=== PATIENT | male | born 1960 | race Caucasian/White ===

== ENCOUNTER 2019-12-10 11:39 | Emergency (ER) | payer MEDICARE, OTHER, SELFPAY ==
[~2019-12-10] VITALS: Ht 185.4 cm; Wt 102.0 kg
--- NOTE | 2019-12-10 12:03 | NUR ---
C/O RT FOOT PAIN, STARTED TUESDAY NIGHT. WAS ABLE TO WALK LONG DISTANCE W/OUT DIFFICULTY. PT DENIES TRAUMA. STATES "IT JUST CRAMPED OUT" ON TUESDAY. TOOK ASA 325MG YESTERDAY W/OUT RELIEF. FOOT COOL & DRY, SWELLING & LIGHT REDNESS NOTED TO LATERAL FOOT, PEDAL PULSE DIMINISHED. LIMITED ROM R/T PAIN. STATES HE INITIALY WENT TO [facility] FOR EVAL BUT THEY WOULDN'T SEE HIM. STATES HE KNEELED ON WALKER TO GET HERE FROM [place]
[2019-12-10] MEDS ORDERED: INHALER (12:09)
--- NOTE | 2019-12-10 12:11 | NUR ---
PT STATES GERARDO WAS LOANED TO HIM TODAY
[2019-12-10] MEDS ORDERED: ACETAMINOPHEN 500 MG TABLET PO ONE (12:30)
[2019-12-10] MEDS ORDERED: ACETAMINOPHEN 500 MG TABLET ONE (12:55)
[2019-12-10] MEDS ORDERED: SODIUM CHLORIDE 0.9% 1,000ML IVBOLUS ONE (13:00)
[2019-12-10 13:01] LABS: ALANINE AMINOTRANSFERASE 92 U/L (12-78); ANION GAP 5 mmol/L (5-15); BASOPHILS # (AUTO) 0.02 x10^3/uL (0-0.1); BASOPHILS % (AUTO) 0 % (0-1); CALCIUM 9.6 mg/dL (8.5-10.1); CHLORIDE 110 mmol/L (98-107); CREATININE 1.65 mg/dL (0.7-1.3); EOSINOPHILS # (AUTO) 0.11 x10^3/uL (0-0.4); EOSINOPHILS % (AUTO) 1 % (1-7); LYMPHOCYTES # (AUTO) 1.19 x10^3/uL (1-3.4); LYMPHOCYTES % (AUTO) 15 % (22-44); MD NO; MEAN CORPUSCULAR HEMOGLOBIN 29.6 pg (27.5-34.5); MEAN CORPUSCULAR HGB CONC 33.7 g/dL (33.2-36.2); MEAN CORPUSCULAR VOLUME 87.8 fL (81-97); MEAN PLATELET VOLUME 10.4 fL (7.4-10.4); MONOCYTES # (AUTO) 0.48 x10^3/uL (0.2-0.8); MONOCYTES % (AUTO) 6 % (2-9); NEUTROPHILS # (AUTO) 6.32 x10^3/uL (1.8-6.8); NEUTROPHILS % (AUTO) 78 % (42-75); PLATELET COUNT 285 x10^3/uL (130-400); RED BLOOD COUNT 4.97 x10^6/uL (4.38-5.82); RED CELL DISTRIBUTION WIDTH 14.4 % (9.4-14.8)
[2019-12-10 13:04] LABS: ALKALINE PHOSPHATASE 134 U/L (45-117); BILIRUBIN,TOTAL 0.9 mg/dL (0.2-1.0); TOTAL PROTEIN 8.7 g/dL (6.4-8.2)
[2019-12-10] MEDS ORDERED: SODIUM CHLORIDE FLUSH 10ML SYR IVF ONE (13:30)
[2019-12-10 14:00] LABS: MICROSCOPIC INDICATED
[2019-12-10 14:34] LABS: CULTURE INDICATED? NO
[2019-12-10 14:49] VITALS: BP 117/95
== END 2019-12-10 15:21 | disposition home or self-care (01) ==
LOC: ED 13:55
DX: M10.071 Idiopathic gout, right ankle and foot (principal); M13.171 Monoarthritis, not elsewhere classified, right ankle and foot; I95.9 Hypotension, unspecified; R00.0 Tachycardia, unspecified; I25.2 Old myocardial infarction
CPT/HCPCS: 36415; 71045; 80053; 81001; 83605; 84145; 84550; 85025; 93005; 96360; 99285; J7030